=== PATIENT | female | born 1960 | race Caucasian/White ===

== ENCOUNTER 2016-11-22 03:19 | Emergency (ER) | payer BC, MEDICARE, OTHER ==
[2016-11-22] MEDS ORDERED: KETOROLAC 60 MG/2 ML VIAL IVP STA (03:34)
[2016-11-22] MEDS ORDERED: ONDANSETRON 4 MG/2 ML VIAL IVP STA (03:34)
[2016-11-22] MEDS ORDERED: SODIUM CHLORIDE 0.9% 1,000 ML IV ONE (03:34)
[2016-11-22 03:43] LABS: BASOPHILS # (AUTO) 0.1 10^3/uL (0.0-0.1); BASOPHILS % (AUTO) 1.1 %; EOSINOPHILS # (AUTO) 0.3 10^3/uL (0.0-0.7); EOSINOPHILS % (AUTO) 4.1 %; HCT - HEMATOCRIT 41.1 % (37.0-47.0); HGB - HEMOGLOBIN 13.7 g/dL (12.0-16.0); LYMPHOCYTES # (AUTO) 4.3 10^3/uL (1.5-3.5); LYMPHOCYTES % (AUTO) 65.9 %; MEAN CORPUSCULAR HGB CONC 33.2 g/dL (32.0-36.0); MEAN CORPUSCULAR VOLUME 87.4 fL (81.0-99.0); MEAN PLATELET VOLUME 7.1 fL (7.9-10.8); MONOCYTES # (AUTO) 0.8 10^3/uL (0.0-1.0); MONOCYTES % (AUTO) 11.8 %; NEUTROPHILS # (AUTO) 1.1 10^3/uL (1.5-6.6); NEUTROPHILS % (AUTO) 17.1 %; NUCLEATED RED BLOOD CELLS AUTO 0.1 /100WBC; RED BLOOD COUNT 4.71 10^6/uL (4.20-5.40); RED CELL DISTRIBUTION WIDTH 13.6 % (12.0-15.0); UNCORRECTED WHITE BLOOD COUNT 6.5 x10^3/uL; WHITE BLOOD COUNT 6.5 x10^3/uL (4.8-10.8)
[2016-11-22 03:55] LABS: ALBUMIN/GLOBULIN RATIO 1.1 (1.0-2.2); BILIRUBIN,TOTAL 0.3 mg/dL (0.2-1.0); CALCIUM 8.9 mg/dL (8.5-10.3); POTASSIUM 3.5 mmol/L (3.5-5.0); TOTAL PROTEIN 7.6 g/dL (6.7-8.2)
[2016-11-22] MEDS ORDERED: KETOROLAC 30 MG/ML VIAL ONE (04:06)
[2016-11-22] MEDS ORDERED: ONDANSETRON 4 MG/2 ML VIAL ONE (04:07)
[2016-11-22 04:12] LABS: BILIRUBIN,URINE NEGATIVE (NEGATIVE)
[2016-11-22 04:14] LABS: UA w/ MICROSCOPIC CHARGE YES
[2016-11-22 04:17] LABS: UR CULTURE IF IND NOT INDICATED
[2016-11-22 04:20] LABS: PLATELET ESTIMATE, MANUAL NORMAL (130-450,000) (NORMAL); PLATELET MORPHOLOGY NORMAL APPEARANCE (NORMAL)
--- NOTE | 2016-11-22 04:22 | CT Preliminary Report ---
Exam: CT Abdomen/Pelvis W/O IMPRESSION: 1. Moderately obstructing 4 x 3 mm distal right ureteral stone. 2. Multiple bilateral nonobstructing renal stones. 3. Moderate stool burden. [facility] SITE ID: [id number]
--- NOTE | 2016-11-22 04:25 | CT Report ---
EXAM: CT ABDOMEN AND PELVIS (CT KUB) EXAM DATE: 11/22/2016 04:07 AM. CLINICAL HISTORY: Right sided flank and abdominal pain, hx of stones. COMPARISONS: 02/10/2009. TECHNIQUE: Routine axial helical CT imaging was performed through the abdomen and pelvis without IV c ontrast. Reconstructions: Coronal and sagittal. In accordance with CT protocol optimization, one or more of the following dose reduction techniques w ere utilized for this exam: automated exposure control, adjustment of mA and/or KV based on patient s ize, or use of iterative reconstructive technique. FINDINGS: Lung Bases: Unremarkable. Right Kidney/Ureter: Moderately obstructing 4 x 3 mm distal right ureteral stone within a few millime ters of the UVJ. Numerous small nonobstructing stones at the lower pole clustered together. Otherwise grossly unremarkable. Left Kidney/Ureter: Multiple small nonobstructing stones measuring up to 4 mm. No ureteral stones, hy dronephrosis, or hydroureter. Other Abdominal Organs: Noncontrast images of the abdominal organs are grossly unremarkable. Peritoneal Cavity: No free fluid, free air or doris adenopathy. Moderate stool burden. Bowel is gross ly unremarkable. Pelvic Organs: No bladder stones or gross wall thickening. Noncontrast images of the visualized pelvi c organs are unremarkable. Vasculature: Unremarkable. Other: None. IMPRESSION: 1. Moderately obstructing 4 x 3 mm distal right ureteral stone. 2. Multiple bilateral nonobstructing renal stones. 3. Moderate stool burden. [facility] Referring Provider Line: [phone] SITE ID: [id number]
--- NOTE | 2016-11-22 04:41 | ED Physician Documentation ---
PD HPI ABD PAIN - Stated complaint Stated Complaint: ABDOMINAL,RT FLANK PAIN - Chief complaint Chief Complaint: Abd Pain - History obtained from History obtained from: Patient, Family - History of Present Illness Timing - onset: How many days ago (2) Timing - details: Gradual onset, Still present Location: RLQ, Suprapubic Radiation: Right flank Worsened by: Eating, Moving Associated symptoms: Nausea, Constipation. No: Fever, Vomiting, Hematemesis, Hematochezia, Dysuria Similar symptoms before: Work up / diagnostics, Treatment Recently seen: Not recently seen - Additional information Additional information: Patient is a 55 year old female with a history of kidney stones who is presenting to the emergency department for right sided flank pain, and lower abdominal pain with distention. Patient states that it has been going on for the last couple of days and is getting progressively worse. Review of Systems Constitutional: denies: Fever, Chills Eyes: denies: Photophobia Ears: denies: Ear pain Nose: denies: Rhinorrhea / runny nose, Congestion Throat: denies: Sore throat Cardiac: denies: Chest pain / pressure GI: reports: Abdominal Pain, Nausea, Constipation. denies: Vomiting : reports: Hesitancy. denies: Dysuria Musculoskeletal: reports: Back pain Neurologic: denies: Generalized weakness, Focal weakness Immunocompromised: denies: Immunocompromised PD PAST MEDICAL HISTORY - Past Medical History Past Medical History: Yes Cardiovascular: Hypertension : Kidney stones Other Past Medical History: Ra/wendy. neutropenia - Past Surgical History Past Surgical History: Yes - Present Medications Home Medications: Ambulatory Orders Medication Instructions Recorded Confirmed Ondansetron Odt [Zofran] 4 mg TL Q6H PRN #10 tablet 11/22/16 Oxycodone HCl/Acetaminophen 1 - 2 each PO Q6H PRN #10 tablet 11/22/16 [Percocet 5-325 mg Tablet] Prednisone 10 mg PO DAILY 11/22/16 11/22/16 Tamsulosin HCl [Flomax] 0.4 mg PO DAILY #10 cap.er.24h 11/22/16 amLODIPine [Norvasc] 5 mg PO DAILY 11/22/16 11/22/16 traZODone [Desyrel] 50 mg PO ONCE 11/22/16 11/22/16 - Allergies Allergies/Adverse Reactions: Allergies Allergy/AdvReac Type Severity Reaction Status Date / Time amoxicillin Allergy Rash Verified 11/22/16 03:26 cephalexin monohydrate * Allergy Rash Verified 11/22/16 03:26 [From Keflex] Sulfa (Sulfonamide Allergy Rash Verified 11/22/16 03:26 Antibiotics) - Social History Does the pt smoke?: No Smoking Status: Never smoker Does the pt drink ETOH?: No Does the pt have substance abuse?: No - Immunizations Immunizations are current?: Yes - POLST Patient has POLST: No PD ED PE NORMAL - Vitals Vital signs reviewed: Yes - General General: Alert and oriented X 3 - HEENT HEENT: Atraumatic, PERRL - Neck Neck: Supple, no meningeal sign - Respiratory Respiratory: No respiratory distress - Abdomen Abdomen: Soft, Non tender - Derm Derm: Normal color, Warm and dry, No rash - Extremities Extremities: No deformity - Neuro Neuro: Alert and oriented X 3, No motor deficit, No sensory deficit, Normal speech - Psych Psych: Normal mood, Normal affect PD ED PE EXPANDED - General General: Alert, Well developed/nourished, In Pain - HEENT HEENT: Dry mucous membranes - Abdomen Abdomen: Tender to palpation, Suprapubic. No: Distended, Rebound, Guarding, Mass - Back Back: CVA TTP right Results - Vitals Vitals: Vital Signs - 24 hr 11/22/16 03:24 Temperature 35.7 C L Heart Rate 81 Respiratory 16 Rate Blood Pressure 145/74 H O2 Saturation 100 - Labs Labs: Laboratory Tests 11/22/16 11/22/16 11/22/16 03:32 03:32 03:33 WBC 6.5 RBC 4.71 Hgb 13.7 Hct 41.1 MCV 87.4 MCH 29.0 MCHC 33.2 RDW 13.6 Plt Count 201 MPV 7.1 L Neut # 1.1 L Lymph # 4.3 H [place] # 0.8 Eos # 0.3 Baso # 0.1 Absolute Nucleated RBC 0.00 Nucleated RBCs 0.1 Manual Slide Review Indicated Platelet Estimate NORMAL (130-450,000) Platelet Morphology NORMAL APPEARANCE RBC Morph Micro Appear NORMAL APPEARANCE Sodium 140 Potassium 3.5 Chloride 107 Carbon Dioxide 27 Anion Gap 6.0 BUN 20 Creatinine 1.0 Estimated GFR (MDRD) 57 L Glucose 98 Calcium 8.9 Total Bilirubin 0.3 AST 22 ALT 17 Alkaline Phosphatase 81 Total Protein 7.6 Albumin 4.0 Globulin 3.6 Albumin/Globulin Ratio 1.1 Lipase 48 Urine Color YELLOW Urine Clarity CLEAR Urine pH 6.0 Ur Specific [place] 1.015 Urine Protein NEGATIVE Urine Glucose (UA) NEGATIVE Urine Ketones NEGATIVE Urine Occult Blood LARGE H Urine Nitrite NEGATIVE Urine Bilirubin NEGATIVE Urine Urobilinogen 0.2 (NORMAL) Ur Leukocyte Esterase NEGATIVE Urine RBC 11-25 H Urine WBC 4-5 Ur Squamous Epith Cells MOD Squamous H Urine Bacteria Rare Ur Microscopic Review INDICATED Urine Culture Comments NOT INDICATED - Rads (name of study) ct abdomen and pelvis Radiology: Final report received (moderately obstructing 4 by 3mm dital right uretal stone) PD MEDICAL DECISION MAKING - ED course Complexity details: reviewed old records, reviewed results, re-evaluated patient , considered differential, d/w patient, d/w family ED course: Patient was seen and examined at bedside. IV access was gained and urine was collected. Patient was treated with toradol and fluid bolus. Imaging was ordered. When patient's diagnostics came back she was found to have multiple stones but no signs of infection. Patient was able to tolerate PO without difficulty. Patient required no further work up and was stable for discharge with outpatient follow up. Departure - Departure Disposition: 01 Home, Self Care Clinical Impression: Kidney stones Condition: Good Instructions: Kidney Stones Prevent, ED Stone Renal W Colic Follow-Up: Shantel Churchill MD [Primary Care Provider] - Prescriptions: Tamsulosin HCl [Flomax] 0.4 mg PO DAILY #10 cap.er.24h Oxycodone HCl/Acetaminophen [Percocet 5-325 mg Tablet] 1 - 2 each PO Q6H PRN # 10 tablet PRN Reason: pain Ondansetron Odt [Zofran] 4 mg TL Q6H PRN #10 tablet PRN Reason: Nausea / Vomiting Comments: You have kidney stones on both sides. they are less than 5mm so they will likely pass on their own. you should stay well hydrated and make sure that you call your urologist today to schedule a follow up appointment. You should return to the emergency department for fevers, chills, new worsening or uncontrollable symptoms.
[2016-11-22 05:00] VITALS: BP 110/68
== END 2016-11-22 05:00 | disposition home or self-care (01) ==
LOC: ED 03:19
DX: N20.0 Calculus of kidney (principal); I10 Essential (primary) hypertension; D70.9 Neutropenia, unspecified
CPT/HCPCS: 36415; 74176; 80053; 81001; 81003; 83690; 85025; 87086; 96374; 96375; 99282; 99284

== ENCOUNTER 2017-09-18 12:36 | Outpatient (CLI) | payer OTHER | END 2017-09-18 12:37 | disposition critical access hospital (66) | LOC: EMS 12:36 | PROVIDERS: ATTEND Surgery | DX: R55 Syncope and collapse (principal); R42 Dizziness and giddiness; H92.21 Otorrhagia, right ear; R51 Headache; W18.39XA Other fall on same level, initial encounter; Y92.512 Supermarket, store or market as the place of occurrence of the external cause | CPT/HCPCS: A0425; A0427 ==

== ENCOUNTER 2017-09-18 13:03 | Emergency (ER) | payer OTHER ==
--- NOTE | 2017-09-18 13:37 | ED Physician Documentation ---
PD HPI SYNCOPE - Stated complaint Stated Complaint: SYNCOPE - Chief complaint Chief Complaint: Trauma Hd/Nk - History obtained from History obtained from: Patient - History of Present Illness Witnessed: Witnessed Timing - onset: Today Duration: Seconds Preceding symptoms: Vision changes, Light headed Associated symptoms: Headache Contributing factors: Decreased PO intake. 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 She fell and hit the right side of her head she has some blood coming from her right ear. She states that she had her usual things to eat and drink this morning a cup of coffee and a glass of orange juice and that yesterday she [place] out [place] the [place]. She does not think she adequately hydrated yesterday. She does take prednisone 10 mg daily and states that she did not feel ill previously but when questioned extensively she may have been urinating more than usual yesterday. Review of Systems Constitutional: reports: Fatigue. denies: Fever, Chills Eyes: denies: Decreased vision Ears: reports: Ear pain (related to the fall) Nose: denies: Rhinorrhea / runny nose, Congestion Throat: denies: Sore throat Cardiac: denies: Chest pain / pressure, Palpitations Respiratory: denies: Dyspnea, Cough GI: reports: Nausea. denies: Abdominal Pain, Vomiting : reports: Frequency. denies: Dysuria Skin: denies: Rash Musculoskeletal: denies: Neck pain, Back pain, Extremity pain Neurologic: reports: Syncope, Headache, Head injury, LOC. denies: Generalized weakness, Focal weakness, Numbness PD PAST MEDICAL HISTORY - Past Medical History Past Medical History: Yes Cardiovascular: Hypertension : Kidney stones - Past Surgical History Past Surgical History: Yes - Present Medications Home Medications: Ambulatory Orders Medication Instructions Recorded Confirmed amLODIPine [Norvasc] 5 mg PO DAILY 11/22/16 11/22/16 predniSONE [Prednisone] 10 mg PO DAILY 11/22/16 11/22/16 traZODone [Desyrel] 50 mg PO ONCE 11/22/16 11/22/16 Etanercept [Enbrel] 0 mg 09/18/17 - Allergies Allergies/Adverse Reactions: Allergies Allergy/AdvReac Type Severity Reaction Status Date / Time amoxicillin Allergy Rash Verified 09/18/17 13:12 cephalexin monohydrate * Allergy Rash Verified 09/18/17 13:12 [From Keflex] Sulfa (Sulfonamide Allergy Rash Verified 09/18/17 13:12 Antibiotics) - Social History Does the pt smoke?: No Smoking Status: Never smoker Does the pt drink ETOH?: No Does the pt have substance abuse?: No - Immunizations Immunizations are current?: Yes - POLST Patient has POLST: No PD ED PE NORMAL - Vitals Vital signs reviewed: Yes (diastolic hypertension) - General General: Alert and oriented X 3, Well developed/nourished, Other (56 y/o female is warm to the touch and diaphoretic, she has blood from the right ear and appears anxious) - HEENT HEENT: PERRL, EOMI, Other (The TM's are intact bilaterally and without signs of inflamation or hemotympanum. The right ear canal has an abrasion that is very tender just inside the canal anteriorly ) - Neck Neck: Supple, no meningeal sign, No bony TTP - Cardiac Cardiac: RRR, No murmur - Respiratory Respiratory: No respiratory distress, Clear bilaterally - Abdomen Abdomen: Soft, Non tender - Back Back: No CVA TTP, No spinal TTP - Derm Derm: Normal color, Warm and dry, No rash - Extremities Extremities: No deformity, No edema - Neuro Neuro: Alert and oriented X 3, No motor deficit, No sensory deficit Eye Opening: Spontaneous Motor: Obeys Commands Verbal: Oriented GCS Score: 15 - Psych Psych: Normal mood, Normal affect Results - Vitals Vitals: Vital Signs - 24 hr 09/18/17 09/18/17 13:03 13:30 Temperature 36.3 C L Heart Rate 67 70 Respiratory 18 16 Rate Blood Pressure 119/90 H 118/77 O2 Saturation 100 100 Oxygen O2 Source Room air - EKG (time done) 1307 Rate: Rate (enter#) (66) Rhythm: NSR Ischemia: Normal ST segments Compare to prior EKG: Old EKG unavailable Computer interpretation: Agree with computer - Labs Labs: Laboratory Tests 09/18/17 09/18/17 09/18/17 13:55 13:55 13:55 WBC 5.5 RBC 4.52 Hgb 13.2 Hct 39.8 MCV 88.0 MCH 29.3 MCHC 33.3 RDW 13.9 Plt Count 184 MPV 7.2 L Neut # 3.6 Lymph # 1.3 L [place] # 0.5 Eos # 0.1 Baso # 0.0 Absolute Nucleated RBC 0.00 Nucleated RBC % 0.0 Sodium 138 Potassium 3.6 Chloride 106 Carbon Dioxide 23 Anion Gap 9.0 BUN 19 Creatinine 1.1 H Estimated GFR (MDRD) 51 L Glucose 129 H Calcium 8.3 L Total Bilirubin 0.9 AST 29 ALT 24 Alkaline Phosphatase 55 Troponin I < 0.04 Total Protein 6.7 Albumin 3.5 Globulin 3.2 Albumin/Globulin Ratio 1.1 Lipase 40 Urine Color Urine Clarity Urine pH Ur Specific [place] Urine Protein Urine Glucose (UA) Urine Ketones Urine Occult Blood Urine Nitrite Urine Bilirubin Urine Urobilinogen Ur Leukocyte Esterase Ur Microscopic Review Urine Culture Comments 09/18/17 14:58 WBC RBC Hgb Hct MCV MCH MCHC RDW Plt Count MPV Neut # Lymph # [place] # Eos # Baso # Absolute Nucleated RBC Nucleated RBC % Sodium Potassium Chloride Carbon Dioxide Anion Gap BUN Creatinine Estimated GFR (MDRD) Glucose Calcium Total Bilirubin AST ALT Alkaline Phosphatase Troponin I Total Protein Albumin Globulin Albumin/Globulin Ratio Lipase Urine Color YELLOW Urine Clarity CLEAR Urine pH 8.5 H Ur Specific [place] 1.020 Urine Protein NEGATIVE Urine Glucose (UA) NEGATIVE Urine Ketones 15 H Urine Occult Blood NEGATIVE Urine Nitrite NEGATIVE Urine Bilirubin NEGATIVE Urine Urobilinogen 0.2 (NORMAL) Ur Leukocyte Esterase NEGATIVE Ur Microscopic Review NOT INDICATED Urine Culture Comments NOT INDICATED - Rads (name of study) CT head without Radiology: Prelim report reviewed (Impression: 1. Positive for small bilateral subdural hematoma along the superior cerebral convexites measuring 4 mm on the left and 3 mm on the right. Positive for a posterior midline falx small subdural hematoma measuring 2-3 mm in thickness. 2. Positive for a nondisplaced right longitudinal temporal bone fracture with fluid within the right mastoid sinus and right middle ear space.), EMP read indepedently, See rad report Procedures - IVC sono (time) 1330 Bedside IVC sono: IVC measures (cm) (0.75), IVC collapsed c insp (cm) (complete) , Significant dehydration (est 2+ liter deficit) PD MEDICAL DECISION MAKING - ED course Complexity details: reviewed old records, reviewed results, re-evaluated patient , considered differential, d/w patient ED course: 56-year-old female with history of rheumatoid arthritis who is on Enbrel has had a acute syncopal episode this morning and is found to be dehydrated on interrogation the inferior vena cava. She does take prednisone 10 mg daily and she is given a stress dose of hydrocortisone and intravenous saline. CT scanning shows bilateral subdural hematomas and temporal bone fracture. She is administered Rocephin for the open fracture and arrangements were made for transfer of the patient to [facility] under the care of Dr. Darren Laguna. Departure - Departure Disposition: 02 Transfer Acute Care Hosp Clinical Impression: Subdural hemorrhage, Dehydration, Syncope and collapse Temporal bone fracture Qualifiers: Encounter type: initial encounter Fracture type: open Qualified Code(s): S02.19XB - Other fracture of base of skull, initial encounter for open fracture Condition: Stable
[2017-09-18] MEDS ORDERED: SODIUM CHLORIDE 0.9% 1,000 ML IV ONE (13:43)
[2017-09-18] MEDS ORDERED: HYDROCORTISONE SUCCINATE 100 MG/2 ML VIAL IVP STA (13:45)
[2017-09-18 14:03] LABS: BASOPHILS % (AUTO) 0.6 %; EOSINOPHILS # (AUTO) 0.1 10^3/uL (0.0-0.7); EOSINOPHILS % (AUTO) 1.3 %; HGB - HEMOGLOBIN 13.2 g/dL (12.0-16.0); LYMPHOCYTES # (AUTO) 1.3 10^3/uL (1.5-3.5); LYMPHOCYTES % (AUTO) 23.9 %; MEAN CORPUSCULAR HEMOGLOBIN 29.3 pg (27.0-31.0); MEAN CORPUSCULAR HGB CONC 33.3 g/dL (32.0-36.0); MEAN PLATELET VOLUME 7.2 fL (7.9-10.8); MONOCYTES # (AUTO) 0.5 10^3/uL (0.0-1.0); MONOCYTES % (AUTO) 9.5 %; NEUTROPHILS # (AUTO) 3.6 10^3/uL (1.5-6.6); NEUTROPHILS % (AUTO) 64.7 %; PLT - PLATELET COUNT 184 10^3/uL (130-450); RED BLOOD COUNT 4.52 10^6/uL (4.20-5.40); RED CELL DISTRIBUTION WIDTH 13.9 % (12.0-15.0); WHITE BLOOD COUNT 5.5 x10^3/uL (4.8-10.8)
[2017-09-18 14:16] LABS: ALBUMIN 3.5 g/dL (3.2-5.5); ALBUMIN/GLOBULIN RATIO 1.1 (1.0-2.2); BILIRUBIN,TOTAL 0.9 mg/dL (0.2-1.0); CALCIUM 8.3 mg/dL (8.5-10.3); CREATININE 1.1 mg/dL (0.4-1.0); TOTAL PROTEIN 6.7 g/dL (6.7-8.2)
--- NOTE | 2017-09-18 14:40 | CT Report ---
EXAM: CT HEAD EXAM DATE: 09/18/2017 02:18 PM. CLINICAL HISTORY: Syncope, fall head injury blood from right canal. COMPARISON: None. TECHNIQUE: Multiaxial CT images were obtained from the foramen magnum to the vertex. Reformats: Coron al. IV contrast: None. In accordance with CT protocol optimization, one or more of the following dose reduction techniques w ere utilized for this exam: automated exposure control, adjustment of mA and/or KV based on patient s ize, or use of iterative reconstructive technique. FINDINGS: Parenchyma: No midline shift or significant mass effect. No parenchymal hematoma. Extraaxial Spaces: There is a small subdural hematoma located along the posterior midline falx measu ring 2.6 mm in thickness on coronal image 22. There is a left-sided subdural hematoma along the super ior left cerebral convexity measuring 4 mm in thickness on coronal image 22. There is a small right-s ided superior subdural hematoma measuring 3 mm in thickness. Ventricles: Normal in size and position. Sinuses and Orbits: Visible paranasal sinuses are clear. Left mastoid appears clear. Bones: There is a nondisplaced longitudinal fracture of the right temporal bone with fluid in the rig ht mastoid sinuses. There is fluid within the right middle ear. Other: None. IMPRESSION: 1. Positive for a small bilateral subdural hematoma along the superior cerebral convexities measuring 4 mm on the left and 3 mm on right. Positive for a posterior midline falx small subdural hematoma me asuring 2-3 mm in thickness. 2. Positive for a nondisplaced right longitudinal temporal bone fracture with fluid within the right mastoid sinus and right middle ear space. [facility] The above findings were discussed with Frankie Santamaria by Dr. Paul Flores at 14:38 hrs on . Referring Provider Line: [phone] SITE ID: [id number]
[2017-09-18 15:08] LABS: BILIRUBIN,URINE NEGATIVE (NEGATIVE); GLUCOSE, URINE (UA) NEGATIVE (NEGATIVE); KETONES,URINE (UA) 15 mg/dL (NEGATIVE); LEUKOCYTE ESTERASE, URINE NEGATIVE (NEGATIVE); NITRITE,URINE NEGATIVE (NEGATIVE); OCCULT BLOOD,URINE NEGATIVE (NEGATIVE); PH,URINE 8.5 PH (5.0-7.5); PROTEIN,URINE NEGATIVE (NEGATIVE); UROBILINOGEN,URINE 0.2 (NORMAL) E.U./dL (NORMAL)
[2017-09-18 15:09] LABS: CLARITY,URINE CLEAR (CLEAR)
[2017-09-18] MEDS ORDERED: cefTRIAXone 1 GM in SODIUM CHLORIDE 0.9% MINIBAG 100 ML IV STA (15:17)
[2017-09-18 19:51] VITALS: BP 117/88
== END 2017-09-18 17:34 | disposition short-term general hospital (02) ==
LOC: EDUNIT# → ED 13:03
DX: S06.5X0A Traumatic subdural hemorrhage without loss of consciousness, initial encounter (principal); S02.19XB Other fracture of base of skull, initial encounter for open fracture; W18.30XA Fall on same level, unspecified, initial encounter; E86.0 Dehydration; R55 Syncope and collapse; I10 Essential (primary) hypertension
CPT/HCPCS: 36415; 70450; 80053; 81001; 81003; 83690; 84484; 85025; 87086; 93005; 96361; 96374; 96375; 99285